=== PATIENT | female | born 1995 | race Caucasian/White ===

== ENCOUNTER 2017-04-10 08:42 | Day surgery (SDC) | payer OTHER ==
[2017-04-03 16:52] VITALS: BMI 38.7
[2017-04-10] MEDS ORDERED: ROPIVACAINE HCL 0.5% 30ML VIAL ONE (08:44)
[2017-04-10] MEDS ORDERED: ONDANSETRON 4 MG/2 ML VIAL IVPUSH PRN (09:11)
[2017-04-10] MEDS ORDERED: LACTATED RINGERS SOLUTION 1,000 ML IV SCH (09:15)
[2017-04-10] MEDS ORDERED: MIDAZOLAM HCL 2 MG/2 ML SINGLE DOSE VIAL ONE (10:10)
[2017-04-10] MEDS ORDERED: ceFAZolin SODIUM 1 GM VIAL ONE (10:18)
[2017-04-10] MEDS ORDERED: SODIUM CHLORIDE 0.9% P/F 10 ML VIAL IJ ONE ×2 (10:18→10:19)
[2017-04-10] MEDS ORDERED: LIDOCAINE HCL 2% 100 MG/5 ML DISP.SYRIN ONE (10:24)
[2017-04-10] MEDS ORDERED: PROPOFOL 20 ML ONE (10:24)
[2017-04-10] MEDS ORDERED: ONDANSETRON 4 MG/2 ML VIAL ONE (10:25)
[2017-04-10] MEDS ORDERED: KETOROLAC TROMETHAMINE 30 MG/1 ML VIAL ONE (10:25)
[2017-04-10 12:54] VITALS: TEMP 97.7
[2017-04-10 12:55] VITALS: BP 112/61; PULSE 75
--- NOTE | 2017-04-11 07:57 | OP ---
DATE OF OPERATION: 04/10/2017 PREOPERATIVE DIAGNOSIS: Right wrist triangular fibrocartilage complex tear. POSTOPERATIVE DIAGNOSIS: Right wrist triangular fibrocartilage complex tear. OPERATIVE PROCEDURE: Right wrist arthroscopy and triangular fibrocartilage complex debridement. SURGEON: Mike He MD THERMOGRAPH OPERATOR: DENNIS Romero ANESTHESIA: General. COMPLICATIONS: None. ESTIMATED BLOOD LOSS: Minimal. INDICATION FOR PROCEDURE: The patient is a 21-year-old female with the above finding, indicated for operative treatment. Risks, benefits, and alternatives were discussed with the patient at length. Proper informed consent was obtained. DESCRIPTION OF PROCEDURE: After proper identification of the patient and correct operative site, patient was brought to the operating room and placed supine on the operative table. All prominences were well padded. General anesthesia was provided by the anesthesiologist and adequate for the procedure. Right upper extremity was prepped and draped in the usual sterile fashion. A well-padded tourniquet was placed as well as sterile prep. Esmarch bandage to exsanguinate the right upper extremity. Tourniquet was inflated to 250 mmHg. Wrist arthroscopy attire was used with 10 pounds of in-line traction, and 3/4 and 4/5 portals were used. Both portals were made with a skin incision only and blunt dissection down to the joint capsule. A 2.7-mm gravity inflow arthroscope was used. Radiocarpal joint was observed and found to be free of articular defects. Mild synovitis was noted dorsally and radially. This was debrided with a mechanical shaver. Scapholunate and lunotriquetral ligaments were found to be intact. Volar radiocarpal ligaments were found to be intact. Dorsal intercarpal ligaments were found to be intact as well. A partial-thickness tear of the TFCC was noted, a radial-sided tear, and debrided with mechanical shaver. Partial split tear of the ulnocarpal ligaments was also noted and debrided with mechanical shaver. There was no instability of the DRUJ and normal trampoline effect; so, no further repair was performed. Dorsal synovitis and capsular thickening was also debrided. The wounds were irrigated with saline and repaired with a 5-0 nylon suture. Sterile dressings were applied. Patient was reversed from anesthesia and brought to the recovery room in stable condition. She tolerated the procedure well. DENNIS Romero, the trading assistant, was integral throughout this procedure. Procedure could not have been performed without a skilled operative trading assistant. MIKE HE M.D. [facility]/[id number]
== END 2017-04-10 12:50 | disposition home or self-care (01) ==
LOC: FASU 08:42
PROVIDERS: ATTEND Orthopaedic Surgery Hand Surgery
PROC: 0MQ54ZZ Repair Right Wrist Bursa and Ligament, Percutaneous Endoscopic Approach (ICD-10-PCS; principal; 2017-04-10 10:30)
DX: S63.591A Other specified sprain of right wrist, initial encounter (principal); X58.XXXA Exposure to other specified factors, initial encounter; Y93.9 Activity, unspecified; Y92.9 Unspecified place or not applicable
CPT/HCPCS: 84703; 94760